=== PATIENT | male | born 1950 | race Caucasian/White ===

== ENCOUNTER 2017-02-07 10:45 | Emergency (ER) | payer MEDICARE ==
[~2017-02-07] VITALS: Ht 177.8 cm; Wt 102.5 kg
[~2017-02-07 10:45] MED LIST: ACID CONTROL150 MG PO; ASPIR 8181 MG PO; CIPRO500 MG PO; DANDRUFF 1% SH325 ML TP; ETODOLAC400 MG PO; FLUNISOLIDE25 ML NS; HYDROCHLOROTHIA50 MG PO; KLOR-CON20 MEQ PO; LISINOPRIL40 MG PO; LYRICA100 MG PO; MESTINON60 MG PO; NIACIN500 MG PO; NORTRIPTYLINE H25 MG PO; POTASSIUM CHLO10 MEQ PO; PROPRANOLOL HCL20 MG PO; TYLENOL EXTRA500 MG PO; ULTRAM50 MG PO
[2017-02-07] MEDS ORDERED: NORVASC5 MG PO (11:04)
[2017-02-07] MEDS ORDERED: LIPITOR20 MG (11:05)
[2017-02-07] MEDS ORDERED: FINASTERIDE5 MG PO (11:06)
[2017-02-07] MEDS ORDERED: FLOMAX0.4 MG PO (11:07)
[2017-02-07] MEDS ORDERED: ALDACTONE25 MG PO (11:08)
== END 2017-02-07 14:02 | disposition home or self-care (01) ==
LOC: ED 10:45
DX: K62.89 Other specified diseases of anus and rectum (principal); K92.1 Melena; I10 Essential (primary) hypertension; Z79.84 Long term (current) use of oral hypoglycemic drugs; Z79.899 Other long term (current) drug therapy; Z79.82 Long term (current) use of aspirin
CPT/HCPCS: 85025; 85610; 85730; 99283